=== PATIENT | female | born 1980 | race Two or more races ===

== ENCOUNTER 2018-02-27 14:47 | Outpatient (CLI) | payer OTHER ==
[~2018-02-27] VITALS: Ht 154.9 cm; Wt 59.4 kg
== END 2018-02-27 15:10 | disposition home or self-care (01) ==
LOC: OFIC 805 14:47
DX: J32.8 Other chronic sinusitis (principal); J38.2 Nodules of vocal cords; K21.0 Gastro-esophageal reflux disease with esophagitis

== ENCOUNTER 2018-05-28 18:12 | Emergency (ER) | payer OTHER ==
[~2018-05-28] VITALS: Ht 154.9 cm; Wt 62.1 kg
== END 2018-05-28 21:23 | disposition home or self-care (01) ==
LOC: ER 18:12
DX: J32.8 Other chronic sinusitis (principal); M62.838 Other muscle spasm

== ENCOUNTER 2018-05-30 13:47 | Emergency (ER) | payer OTHER ==
[~2018-05-30] VITALS: Ht 154.9 cm; Wt 62.1 kg
== END 2018-05-30 18:43 | disposition home or self-care (01) ==
LOC: ER 13:47
DX: B34.9 Viral infection, unspecified (principal)

== ENCOUNTER 2020-11-18 08:00 | Outpatient (CLI) | payer OTHER | END 2020-11-18 08:30 | disposition home or self-care (01) | LOC: PPH VACUNA 08:00 | PROVIDERS: ATTEND Emergency Medicine Pediatric Emergency Medicine | DX: Z23 Encounter for immunization (principal) ==

== ENCOUNTER 2021-09-25 09:42 | Emergency (ER) | payer OTHER ==
[~2021-09-25] VITALS: Ht 157.5 cm; Wt 63.0 kg
[2021-09-25] MEDS ORDERED: CIPRO500 MG PO (16:28)
[2021-09-25] MEDS ORDERED: METRONIDAZOLE500 MG PO (16:28)
[2021-09-25] MEDS ORDERED: PEPCID AC20 MG PO (16:28)
== END 2021-09-25 17:48 | disposition home or self-care (01) ==
LOC: ER 09:42
DX: K51.00 Ulcerative (chronic) pancolitis without complications (principal)

== ENCOUNTER 2021-10-25 09:39 | Outpatient (CLI) | payer OTHER ==
[~2021-10-25 09:39] MED LIST: CIPRO500 MG PO; METRONIDAZOLE500 MG PO; PEPCID AC20 MG PO
== END 2021-10-25 12:59 | disposition home or self-care (01) ==
LOC: LAB 09:39
DX: Z20.822 Contact with and (suspected) exposure to COVID-19 (principal)

== ENCOUNTER 2021-10-25 10:33 | Emergency (ER) | payer OTHER ==
[~2021-10-25] VITALS: Ht 157.5 cm; Wt 63.0 kg
== END 2021-10-25 16:13 | disposition home or self-care (01) ==
LOC: ER 10:33
DX: K52.9 Noninfective gastroenteritis and colitis, unspecified (principal)